=== PATIENT | male | born 1980 | race Caucasian/White ===

== ENCOUNTER 2018-05-23 19:16 | Emergency (ER) | payer SELFPAY ==
[2018-05-24 07:20] LABS: NEGATIVE OBC STREP NEG; POSITIVE OBC STREP POS
== END 2018-05-23 21:10 | disposition home or self-care (01) ==
LOC: ER 21:10
DX: S20.211A Contusion of right front wall of thorax, initial encounter (principal); J02.9 Acute pharyngitis, unspecified; E11.9 Type 2 diabetes mellitus without complications; I10 Essential (primary) hypertension; F17.210 Nicotine dependence, cigarettes, uncomplicated; W18.09XA Striking against other object with subsequent fall, initial encounter; Y93.89 Activity, other specified; Y99.8 Other external cause status; Y92.59 Other trade areas as the place of occurrence of the external cause
CPT/HCPCS: 71101; 87070; 87880; 99285